=== PATIENT | female | born 2000 | race Hispanic/Latino ===

== ENCOUNTER 2018-06-04 19:08 | Emergency (ER) | payer SELFPAY ==
[~2018-06-04] VITALS: Ht 160 cm; Wt 66.8 kg
[2018-06-04 19:49] LABS: IMMATURE GRANULOCYTES 0.5 % (0.0-1.0); MEAN CORPUSCULAR HGB 28.7 pG CALC (26.0-32.0); MEAN CORPUSCULAR HGB CONC 33.3 g/L CALC (32.0-36.0); NEUT# 6.27 thou/uL (2.00-7.15); RED BLOOD COUNT 4.88 mill/uL (4.20-5.60); RED CELL DISTRI WIDTH 12.4 % (11.5-15.5)
[2018-06-04 19:50] LABS: HEMATOCRIT 42.1 % (37.0-47.0); MEAN CELL VOLUME 86.3 fL CALC (80.0-100.0)
[2018-06-04] MEDS ORDERED: NEXPLANON68 MG SC (19:52)
[2018-06-04 19:56] LABS: ALBUMIN 4.9 g/dL (3.2-5.0); ALKALINE PHOSPHATASE 56 u/l (38-126); BILIRUBIN, TOTAL 0.6 mg/dL (0.0-1.4); BUN 14 mg/dL (8-21); BUN/CREATININE RATIO 22 (12-20 (CALC)); CARBON DIOXIDE 18 mmol/l (22-30); CHLORIDE 103 mmol/l (95-108); CREATININE 0.7 mg/dL (0.5-1.0); GFR > 60 ML/MIN (>=60 (CALC)); GFR FOR AFR.AMER. > 60 ML/MIN (>=60 (CALC)); MAGNESIUM 1.9 mg/dL (1.6-2.3); SGOT/AST 25 u/l (14-36); SGPT/ALT 40 u/l (9-52); SODIUM 139 mmol/l (137-146); TOTAL PROTEIN 8.3 g/dL (6.3-8.2)
[2018-06-04 19:59] LABS: ANION GAP 23 (6-22 (CALC)); POTASSIUM 4.5 mmol/l (3.5-5.1)
[2018-06-04 20:48] LABS: URINE BILIRUBIN - DIPSTICK NEGATIVE (NEGATIVE); URINE BLOOD DIPSTICK NEGATIVE (NEGATIVE); URINE COLOR YELLOW; URINE GLUCOSE - DIPSTICK NEGATIVE (NEGATIVE); URINE KETONE 15 mg/dL (NEGATIVE); URINE LEUK ESTERASE NEGATIVE (NEGATIVE); URINE NITRITE - DIPSTICK NEGATIVE (Negative); URINE PROTEIN - DIPSTICK 30 mg/dL (NEG-TRACE); URINE SPECIFIC GRAVITY >=1.030; URINE UROBILINOGEN - DIPSTICK 0.2 E.U./dL (0.2)
[2018-06-04 20:50] LABS: URINE CLARITY CLEAR; URINE RBC 0-2 RBC/hpf (0-5); URINE SQUAMOUS EPITHELIAL CELL FEW EPI/hpf (0-FEW)
[2018-06-04 20:51] LABS: BARBITURATES NEGATIVE (NEGATIVE); COCAINE NEGATIVE (NEGATIVE); METHADONE NEGATIVE (NEGATIVE); OXCYCODONE NEGATIVE (NEGATIVE); TETRAHYDROCANNABIONOL POSITIVE (NEGATIVE); TRICYLIC ANTIDEPRESSANTS NEGATIVE (NEGATIVE)
[2018-06-04 21:44] VITALS: BP 118/63
== END 2018-06-04 21:41 | disposition home or self-care (01) | DRG 101 ==
LOC: ED 19:08
PROVIDERS: Family Medicine
DX: R56.9 Unspecified convulsions (principal)

== ENCOUNTER 2023-01-04 11:10 | Emergency (ER) | payer SELFPAY ==
[~2023-01-04] VITALS: Ht 160 cm; Wt 86.0 kg
[~2023-01-04 11:10] MED LIST: NEXPLANON68 MG SC
[2023-01-04] MEDS ORDERED: ZPAK PO (12:56)
[2023-01-04] MEDS ORDERED: PREDNISONE50 MG PO (12:56)
[2023-01-04] MEDS ORDERED: ALBUTEROL SUL0.083 % IN (12:56)
[2023-01-04] MEDS ORDERED: PROAIR HFA IN (13:04)
[2023-01-04 13:31] VITALS: BP 132/94
== END 2023-01-04 13:37 | disposition home or self-care (01) | DRG 153 ==
LOC: ED 11:10
DX: J06.9 Acute upper respiratory infection, unspecified (principal); Z20.822 Contact with and (suspected) exposure to COVID-19

== ENCOUNTER 2024-11-23 12:09 | Emergency (ER) | payer SELFPAY ==
[~2024-11-23] VITALS: Ht 160 cm; Wt 84.8 kg
[~2024-11-23 12:09] MED LIST changes: +ALBUTEROL SUL0.083 % IN; +PREDNISONE50 MG PO; +PROAIR HFA IN; +ZPAK PO
[2024-11-23 12:43] VITALS: BP 126/80
[2024-11-23 12:45] VITALS: BP 132/79
[2024-11-23] MEDS ORDERED: predniSONE 20 MG/TAB PO ONE (12:45)
[2024-11-23] MEDS ORDERED: AZITHROMYCIN 250 MG/TAB PO ONE (12:45)
[2024-11-23 13:00] VITALS: BP 118/80
[2024-11-23] MEDS ORDERED: OSELTAMIVIR PHOSPHATE 75 MG/TAB CAP PO ONE (13:20)
[2024-11-23] MEDS ORDERED: TAM75CAP PO (13:20)
[2024-11-23 13:27] VITALS: BP 118/80
== END 2024-11-23 13:25 | disposition home or self-care (01) | DRG 195 ==
LOC: ED 12:09
DX: J10.1 Influenza due to other identified influenza virus with other respiratory manifestations (principal); F41.9 Anxiety disorder, unspecified; F32.A Depression, unspecified; Z20.822 Contact with and (suspected) exposure to COVID-19